=== PATIENT | male | born 1995 | race Caucasian/White ===

== ENCOUNTER 2020-02-17 14:55 | Outpatient (REF) | payer SELFPAY ==
[2020-02-21 04:40] LABS: SARS-CoV-2 RNA Undetected (Undetected); SARS-CoV-2 Specimen Source Nasal
== END 2020-02-17 15:15 ==
LOC: NCHCN 14:55
PROVIDERS: PCP Pediatrics; Visit Provider Nurse Practitioner Family
DX: Z11.59 Encounter for screening for other viral diseases (principal)
CPT/HCPCS: U0003

== ENCOUNTER 2021-03-04 08:51 | Emergency (ER) | payer SELFPAY ==
[2021-03-04 09:45] VITALS: BP 131/74; PULSE 57; RESP 16; TEMP 36.7; O2SAT 100
--- NOTE | 2021-03-04 09:47 | ED.GENADUL_ITS ---
Discharge Plan Disposition Patient Disposition: HOME Condition: Good Discharge Details Clinical Impression: Laceration of scalp, Head ache Primary Care Provider: Anuel Gooden ED Provider: Yaima Ramires Home Meds and New Rx's Prescriptions: No Action No Known Home Meds RF: 0 Discharge Instructions Additional Instructions: Keep your wound clean and dry Staple removal in 7 days Recommend taking the day off today from work, should you develop headache, dizziness, vomiting, or with any new or worsening complaints you may have a concussion and should be reassessed and should not be operating a vehicle until your symptoms resolve completely At this time you are not exhibiting signs or symptoms of concussion but I do not recommend driving for the rest today Take ibuprofen and Tylenol as needed for discomfort Stand Alone Forms: Work Release Referrals: Anuel Gooden MD [Primary Care Provider] - Discharge Data Discharge Date/Time-TO BE ENTERED AT DEPARTURE: 03/04/21 10:18 Medical Decision Making Patient ambulatory with steady gait without signs or symptoms consistent with concussion Tolerated staple placement without incident Tetanus updated Recommendation to return to work in 24 hours provided patient does not have headache, dizziness, or any signs or symptoms consistent with concussion Stable removal in 7 days recommended Lab Data Lab results reviewed: Yes I reviewed the patient's lab results. HPI General Mode of arrival: ambulatory . Date/Time Provider Initiated Documentation: 03/04/21 09:43 . Limitations to Documentation: no limitations . Information obtained by: patient . HPI Narrative: This 25-year-old male presents with laceration to his scalp after a chain fell hitting him just prior to arrival. He states that this occurred at work. He denies loss of consciousness. He has pain to the affected area but denies any headache, vomiting, dizziness. He denies any history of anticoagulation. He is otherwise reportedly healthy and denies any neck pain or strength or sensation changes to his extremities. He otherwise feels quite well. He is unsure regarding his tetanus vaccination Related Data Home Medications Medication Instructions Recorded Confirmed Unknown [No Known Home Meds] 09/05/12 09/05/12 Allergies Allergy/AdvReac Type Severity Reaction Status Date / Time No Known Allergies Allergy Unverified 03/04/21 09:49 Review of Systems All systems reviewed & are unremarkable except as noted in HPI and below PFSH All Active Problems (Updated 03/04/21 @ 10:04 by ABBY Rouse) Laceration of scalp (Acute) Head ache (Acute) Social History Smoking/Tobacco Use Status: Never Smoking risk assessment performed?: Yes Alcohol Intake: current Alcohol Intake frequency: a few times a week Drug use: Occasionally Substance use type: marijuana Do you feel safe at home: Yes Do you feel safe in your relationship?: Yes Exam Const General: cooperative and comfortable [facility] Head images: 1. 5 mm laceration Other: Laceration noted to the occipital region, 5 mm, no hemotympanum Eyes Pupils: PERRL Neck Other: No midline tenderness Resp Effort & Inspection: normal respiratory effort Auscultation: clear to auscultation bilaterally Cardio Rate: regular rate Neuro Other: GCS 15, strength and sensation intact distally, ambulatory with steady gait, speech intact, alert and oriented x4
[2021-03-04 10:11] VITALS: BP 131/84; PULSE 65; TEMP 35.9; O2SAT 99
[2021-03-04] MEDS: Ibuprofen 600 MG TAB PO (10:20)
== END 2021-03-04 10:18 | disposition home or self-care (01) ==
PROVIDERS: Emergency Provider Physician Assistant; PCP Pediatrics
DX: S01.01XA Laceration without foreign body of scalp, initial encounter (principal); W20.8XXA Other cause of strike by thrown, projected or falling object, initial encounter; Y99.0 Civilian activity done for income or pay; R51.9 Headache, unspecified
CPT/HCPCS: 12001; 90471

== ENCOUNTER 2021-03-11 06:48 | Emergency (ER) | payer SELFPAY ==
[2021-03-11 06:54] VITALS: BP 128/80; PULSE 59; RESP 16; TEMP 36.7; O2SAT 100
--- NOTE | 2021-03-11 06:56 | ED.GENADUL_ITS ---
Discharge Plan Disposition Patient Disposition: HOME Condition: Good Discharge Details Clinical Impression: Encounter for removal of shey Primary Care Provider: Unknown,Unknown ED Provider: Danny Haynes Home Meds and New Rx's Prescriptions: No Action No Known Home Meds RF: 0 Discharge Instructions Additional Instructions: Be careful when showering/shampooing as there is a scab that will eventually come off. Otherwise it looks good. Medical Decision Making Staple removed without incident. Patient cautioned regarding scab and shampooing hair. Discharged home. HPI General Mode of arrival: ambulatory . Date/Time Provider Initiated Documentation: 03/11/21 06:56 . Limitations to Documentation: no limitations . Information obtained by: patient . HPI Narrative: Patient presents for staple removal. He had one staple placed a week ago after getting hit in the back of the head with a chain. Has been doing well. No pain or drainage. Related Data Home Medications Medication Instructions Recorded Confirmed Unknown [No Known Home Meds] 09/05/12 09/05/12 Allergies Allergy/AdvReac Type Severity Reaction Status Date / Time No Known Allergies Allergy Unverified 03/11/21 06:56 General MAGALIS: 4 Review of Systems Constitutional Constitutional: Denies fever(s) and Denies headache(s) ENT Ears, Nose, Mouth, and Throat: Denies headache(s) Cardiovascular Cardiovascular: Denies dyspnea Respiratory Respiratory: Denies cough and Denies dyspnea Integumentary/Breasts Skin/Breast: Denies erythema Neurologic Neurologic: Denies headache(s) PFSH All Active Problems Laceration of scalp (Acute) Head ache (Acute) Encounter for removal of shey (Acute) Social History Smoking/Tobacco Use Status: Never Smoking risk assessment performed?: Yes Alcohol Intake: current Alcohol Intake frequency: a few times a week Drug use: Occasionally Substance use type: marijuana Do you feel safe at home: Yes Do you feel safe in your relationship?: Yes Exam Const General: healthy appearing, comfortable and no acute distress Orientation: alert and oriented x3 HENMT Head: no scalp tenderness and other (Scab with staple present occipital scalp. No redness or drainage.) Face and sinus: normal facial exam Resp Effort & Inspection: normal respiratory effort Neuro General: patient alert and patient oriented x3 Cognition: normal cognition Speech: speech normal Gait: normal gait
== END 2021-03-11 07:02 | disposition home or self-care (01) ==
PROVIDERS: Emergency Provider Emergency Medicine
DX: S01.01XD Laceration without foreign body of scalp, subsequent encounter (principal); W20.8XXD Other cause of strike by thrown, projected or falling object, subsequent encounter; Z48.02 Encounter for removal of sutures